=== PATIENT | female | born 1955 | race Caucasian/White ===

== ENCOUNTER 2016-10-27 18:27 | Emergency (ER) | payer MEDICARE ==
[~2016-10-27 18:27] MED LIST: COLACE100 MG PO; FERROUS SULFAT325 MG PO; NORCO 5-325 TA1 EACH PO; SEROQUEL25 MG PO; SYNTHROID75 MCG PO; ZOLOFT100 MG PO
== END 2016-10-27 21:54 | disposition home or self-care (01) ==
LOC: ER 18:27
DX: M79.604 Pain in right leg (principal); Z79.899 Other long term (current) drug therapy; Z90.710 Acquired absence of both cervix and uterus; Z87.81 Personal history of (healed) traumatic fracture; W18.30XA Fall on same level, unspecified, initial encounter

== ENCOUNTER 2017-03-08 16:41 | Emergency (ER) | payer MEDICARE | END 2017-03-08 20:48 | disposition home or self-care (01) | LOC: ER 16:41 | DX: N93.8 Other specified abnormal uterine and vaginal bleeding (principal); N39.0 Urinary tract infection, site not specified; E66.9 Obesity, unspecified; F03.90 Unspecified dementia, unspecified severity, without behavioral disturbance, psychotic disturbance, mood disturbance, and anxiety; Z79.899 Other long term (current) drug therapy | CPT/HCPCS: 36415; 51701; 96360; Q9967 ==